=== PATIENT | female | born 1995 ===

== ENCOUNTER 2016-05-13 09:30 | Inpatient (IN) | payer BC ==
[~2016-05-13] VITALS: Ht 167.6 cm; Wt 111.6 kg
[~2016-05-13 09:30] MED LIST: LIDOCAINE 2% MPF 10 ML EPIDURAL ONE
[2016-05-13 22:22] VITALS: Ht 167.6 cm; Wt 111.6 kg
[2016-05-14] VITALS (19 sets, daily range): BP systolic 125–158; RESP 18–20; TEMP 98.5
[2016-05-14] MEDS ORDERED: METOCLOPRAMIDE 10 MG/2 ML VIAL IV PUSH PRN (11:50)
[2016-05-14] MEDS ORDERED: FAMOTIDINE 20 MG INJ IV PRN (11:50)
[2016-05-14] MEDS ORDERED: FAMOTIDINE 20 MG TAB PO PRN (11:50)
[2016-05-14] MEDS ORDERED: PROMETHAZINE 25 MG/ML VIAL IV PRN (11:50)
[2016-05-14] MEDS ORDERED: ALU/MAG/SIM 30 ML UDC PO PRN (11:50)
[2016-05-14] MEDS ORDERED: ACETAMINOPHEN 325 MG TAB PO PRN (11:50)
[2016-05-14] MEDS ORDERED: CEFAZOLIN (LD/OB) 100 ML IV PRN (11:50)
[2016-05-14] MEDS ORDERED: OXYTOCIN 15 UNITS/250 ML NS 250 ML IV SCH ×4 (11:50→20:40)
[2016-05-14] MEDS ORDERED: ONDANSETRON 4 MG VIAL IV PUSH PRN (11:50)
[2016-05-14] MEDS ORDERED: LIDOCAINE 1% BUFFERED 1 ML SYR INTRADERM PRN ×2 (11:50)
[2016-05-14] MEDS ORDERED: TERBUTALINE 1 MG/ML VIAL SUBQ PRN (11:50)
[2016-05-14] MEDS ORDERED: LIDOCAINE 1% 30 ML PF INFILTRATE ONE ×2 (11:50)
[2016-05-14] MEDS ORDERED: LACT RINGERS 1,000 ML IV SCH (11:50)
[2016-05-14] MEDS ORDERED: ROPIV/FENT 0.2%-2MCG/ML 100 ML EPIDURAL ONE (16:40)
[2016-05-14] MEDS ORDERED: FENTANYL 100 MCG/2 ML AMP ONE (16:40)
[2016-05-14] MEDS ORDERED: ROPIV/FENT 0.2%-2MCG/ML 100 ML EPIDURAL SCH (18:05)
[2016-05-14] MEDS ORDERED: LACT RINGERS 500 ML IV PRN (18:05)
[2016-05-14] MEDS ORDERED: LACT RINGERS 500 ML IV ONE (18:05)
[2016-05-14] MEDS ORDERED: FENTANYL 100 MCG/2 ML AMP EPIDURAL ONE (18:05)
[2016-05-14] MEDS ORDERED: SODIUM CHLORIDE 0.9% 500 ML IV PRN (18:05)
[2016-05-14] MEDS ORDERED: Flu Vaccine Quadrivalent 60 MCG/0.5 ML IM.VACC ONE (19:10)
[2016-05-14] MEDS ORDERED: **ONLY ANESTEHSIA MAY ORDER OPIATES WHILE ON EPIDURAL XX SCH (20:00)
[2016-05-14] MEDS ORDERED: ASTRINGENT MED PADS 40'S TOPICAL PRN (20:40)
[2016-05-14] MEDS ORDERED: MAG HYDROX 30 ML UDC PO PRN (20:40)
[2016-05-14] MEDS ORDERED: DERMOPLAST SPRAY TOPICAL PRN (20:40)
[2016-05-14] MEDS ORDERED: BISACODYL 10 MG SUPP RECTAL PRN (20:40)
[2016-05-14] MEDS ORDERED: OXYCODONE/APAP 5/325 TAB PO PRN (20:40)
[2016-05-14] MEDS ORDERED: MEASLES,MUMPS,RUBELLA VAC SUBQ.VACC ONE (20:40)
[2016-05-14] MEDS ORDERED: TDaP 0.5 ML VIAL IM.VACC ONE (20:40)
[2016-05-14] MEDS ORDERED: ZOLPIDEM 5 MG TAB PO PRN (20:40)
[2016-05-14] MEDS ORDERED: MISOPROSTOL 100 MCG TAB RECTAL ONE (20:50)
[2016-05-14] MEDS ORDERED: MAGNESIUM 50 GM/500 ML (LD/OB) 500 ML IV SCH (20:50)
[2016-05-14] MEDS ORDERED: MAGNESIUM SULFATE IV ONE (20:50)
[2016-05-14] MEDS ORDERED: MAGNESIUM 4GM/50ML (LD/OB) 50 ML IV ONE (20:50)
[2016-05-14] MEDS ORDERED: MAGNESIUM 50 GM/500 ML (LD/OB) 500 ML IV ONE (20:50)
[2016-05-14] MEDS: Ibuprofen 600 MG TAB PO SCH (22:13)
[2016-05-15] VITALS (22 sets, daily range): BP systolic 118–175; RESP 16–20; TEMP 98.4–98.7
[2016-05-15] MEDS: Ibuprofen 600 MG TAB PO SCH ×3 (05:11→18:07)
[2016-05-15] MEDS: LACT RINGERS 1,000 ML IV SCH ×2 (05:53→14:54)
[2016-05-15] MEDS: DOCUSATE SOD 100 MG CAP PO SCH (08:55)
[2016-05-16] MEDS: Ibuprofen 600 MG TAB PO SCH ×5 (00:59→23:48)
[2016-05-16 05:39] VITALS: BP_SYST 144; RESP 20; TEMP 97.6
[2016-05-16] MEDS: DOCUSATE SOD 100 MG CAP PO SCH (09:16)
[2016-05-16 09:18] VITALS: BP_SYST 134; RESP 14; TEMP 97.9
[2016-05-16] MEDS ORDERED: TDaP 0.5 ML VIAL IM.VACC ONE (17:04)
[2016-05-16 17:06] VITALS: BP_SYST 141; RESP 18; TEMP 98.1
[2016-05-17 05:15] VITALS: BP_SYST 123; TEMP 98
[2016-05-17 05:16] VITALS: RESP 16
[2016-05-17] MEDS: Ibuprofen 600 MG TAB PO SCH ×2 (05:42→11:11)
[2016-05-17] MEDS: DOCUSATE SOD 100 MG CAP PO SCH (08:35)
[2016-05-17 09:06] VITALS: BP_SYST 156; RESP 16; TEMP 98.3
[2016-05-17 09:07] VITALS: RESP 16
[2016-05-17 12:38] VITALS: BP_SYST 147; RESP 18
== END 2016-05-17 13:13 | disposition home or self-care (01) | DRG 775 ==
LOC: LDOP 09:30 → OB 11:54 → OBSVTOIN 05-14 12:02 → LD 05-14 12:11 → OB 05-15 19:44 → LD 05-15 20:25 → OB 05-16 05:21
PROVIDERS: ADMIT Obstetrics & Gynecology; ATTEND Obstetrics & Gynecology
PROC: 10E0XZZ Delivery of Products of Conception, External Approach (ICD-10-PCS; principal; 2016-05-14)
PROC: 0W8NXZZ Division of Female Perineum, External Approach (ICD-10-PCS; 2016-05-14)
DX: O14.94 Unspecified pre-eclampsia, complicating childbirth (principal); Z37.0 Single live birth; Z3A.38 38 weeks gestation of pregnancy
CPT/HCPCS: 59025; 80053; 81001; 81002; 82570; 82803; 84112; 84156; 85014; 85018; 85025; 88307; 90471; 96372